=== PATIENT | female | born 1955 | race Caucasian/White ===

== ENCOUNTER → 2016-09-19 | Outpatient (CLI) | payer OTHER ==
--- NOTE | 2016-09-19 10:39 | Discharge Instructions ---
Discharge Instructions Procedure Procedure Date: Sep 19, 2016. Reason for visit: Hx Of Melanoma W/Cervical Lymph Node. Discharge Discharge Date: Sep 19, 2016. Discharge Diagnosis: s/p cervical lymph node FNA Instructions Activity Recommendations: No limitations Return to School/Work: no limitations Recommended Home Diet: No Limitations Provider Instructions: ACTIVITY RECOMMENDATIONS: * Rest today. * Resume regular activity in one day. MEDICATIONS: * May take Tylenol or Ibuprofen as needed for pain. DIET: * Resume previous diet. SPECIAL CARE INSTRUCTIONS: Call your doctor if: * Temperature above 101 degrees F. * Pain not relieved by pain medicine ordered. * Increased drainage or redness from incision. * Notify your doctor with any questions or concerns. Call your doctor or go to the nearest Emergency Department if you experience: * Increased chest pain or shortness of breath. FOLLOW UP VISIT: Follow-up with Referring Physician as scheduled. Iggy Vidales Recommendations: Call your doctor if: * Temperature above 101 degrees * Pain not relieved by pain medicine ordered * There is increased drainage or redness from any incision * You have any unanswered questions or concerns. Your Doctors Instructions noted above were prepared by provider Pa Sauer. Patient Signature Section: Patient Instructions Signature Page Cassie Dockery Patient (or Guardian) Signature/Date: I have read and understand the instructions given to me by my caregivers. Caregiver/RN/Doctor Signature/Date: The above-named patient and/or guardian has received patient instructions on this date. + Original Patient Signature Page (only) stays with chart. Please make copy for patient.
--- NOTE | 2016-09-19 11:06 | DIAGNOSTIC IMAGING REPORT ---
ULTRASOUND GUIDED FINE NEEDLE ASPIRATION OF LEFT CERVICAL NODULE CLINICAL HISTORY: Enlarged cervical lymph node. History of melanoma. COMPARISON STUDY: No previous studies for comparison. PROCEDURE: Sonography of the left neck demonstrated a 0.9 x 0.7 cm oval-shaped hypoechoic left level 2 nodule which reflects the palpable abnormality. This was targeted for fine needle aspiration. The procedure, risks and benefits were discussed with the patient and informed written consent was obtained. The procedure was performed by Dr. Sauer following a timeout. Skin of the left neck was prepped and draped in sterile fashion and local anesthesia was achieved with 1% lidocaine. Under direct ultrasound guidance, 2 25-gauge fine needle aspirations were performed followed by a 22-gauge fine needle aspiration. Dark material was aspirated. Minimal cellularity was noted. The patient tolerated the procedure well and no immediate complications were evident. IMPRESSION: Ultrasound guided fine needle aspiration of 9 mm left level 2 cervical nodule. Electronically signed by: aP Sauer M.D. 09/19/2016 11:05 AM Dictated Date/Time: 09/19/2016 11:02 AM
--- NOTE | 2016-12-02 14:34 | DIAGNOSTIC IMAGING REPORT ---
ULTRASOUND GUIDED FINE NEEDLE ASPIRATION OF LEFT CERVICAL NODULE CLINICAL HISTORY: Enlarged cervical lymph node. History of melanoma. COMPARISON STUDY: No previous studies for comparison. PROCEDURE: Sonography of the left neck demonstrated a 0.9 x 0.7 cm oval-shaped hypoechoic left level 2 nodule which reflects the palpable abnormality. This was targeted for fine needle aspiration. The procedure, risks and benefits were discussed with the patient and informed written consent was obtained. The procedure was performed by Dr. Sauer following a timeout. Skin of the left neck was prepped and draped in sterile fashion and local anesthesia was achieved with 1% lidocaine. Under direct ultrasound guidance, 2 25-gauge fine needle aspirations were performed followed by a 22-gauge fine needle aspiration. Dark material was aspirated. Minimal cellularity was noted. The patient tolerated the procedure well and no immediate complications were evident. IMPRESSION: Ultrasound guided fine needle aspiration of 9 mm left level 2 cervical nodule. Electronically signed by: Pa Sauer M.D. 09/19/2016 11:05 AM Dictated Date/Time: 09/19/2016 11:02 AM
== END | disposition home or self-care (01) ==
LOC: C.ULTR 09:42
PROVIDERS: ATTEND Family Medicine
DX: C79.89 Secondary malignant neoplasm of other specified sites (principal)

== ENCOUNTER → 2017-01-28 | Outpatient (CLI) | payer OTHER ==
--- NOTE | 2017-01-28 13:29 | DIAGNOSTIC IMAGING REPORT ---
NECK ULTRASOUND CLINICAL HISTORY: Left supraclavicular lump. History of melanoma. COMPARISON STUDY: Ultrasound guided fine needle aspiration of left neck lesion September 19, 2016. TECHNIQUE: Sonography of the neck at site of palpable abnormality was performed. FINDINGS: Note is made of a 1.6 x 1.3 x 1.2 cm round hypoechoic left supraclavicular mass which reflects the palpable abnormality. In addition, a mildly enlarged left level 4 cervical lymph node was noted that measured 2.1 x 0.6 x 1 cm. There is focal cortical thickening of this lymph node. IMPRESSION: 1. 1.6 cm left supraclavicular mass which reflects the palpable abnormality and is highly suggestive of recurrent malignancy. Fine needle aspiration of this lesion was subsequently performed during this visit. 2. Mildly enlarged left level 4 cervical lymph node with focal cortical thickening. This lymph node is indeterminate and fine needle aspiration of this lesion was also subsequently performed during this visit. Electronically signed by: Pa Sauer M.D. 01/28/2017 1:27 PM Dictated Date/Time: 01/28/2017 1:25 PM
--- NOTE | 2017-01-28 13:39 | DIAGNOSTIC IMAGING REPORT ---
ULTRASOUND GUIDED FINE NEEDLE ASPIRATION OF LEFT SUPRACLAVICULAR PALPABLE MASS AND MILDLY ENLARGED LEFT LEVEL 4 CERVICAL LYMPH NODE CLINICAL HISTORY: Melanoma. Palpable left supraclavicular mass. COMPARISON STUDY: Ultrasound guided fine needle aspiration September 19, 2016 and neck ultrasound performed earlier today. PROCEDURE: Sonography of the neck revealed a 1.6 cm left supraclavicular mass which reflects the palpable abnormality. Note was also made of a mildly enlarged left level 4 cervical lymph node. These 2 lesions were targeted for fine needle aspiration. The procedure, risks and benefits were discussed with the patient. The patient agreed to the procedure and informed written consent was obtained. The procedure was performed by Dr. Sauer following a timeout. Skin was prepped and draped in sterile fashion and local anesthesia was achieved with 1% lidocaine. Under direct ultrasound guidance, 2 25-gauge fine needle aspirations of the left supraclavicular mass were performed. The samples were deemed preliminarily adequate. Two 25-gauge fine-needle aspirations of the left level 4 cervical lymph node were also performed. These were also deemed preliminarily adequate. IMPRESSION: Ultrasound-guided fine needle aspiration of left supraclavicular palpable mass and left level 4 cervical lymph node. Electronically signed by: Pa Sauer M.D. 01/28/2017 1:37 PM Dictated Date/Time: 01/28/2017 1:35 PM
== END | disposition home or self-care (01) ==
LOC: C.ULTR 12:09
PROVIDERS: ATTEND Dermatology
DX: C79.89 Secondary malignant neoplasm of other specified sites (principal); C43.9 Malignant melanoma of skin, unspecified